=== PATIENT | male | born 2000 | race Caucasian/White ===

== ENCOUNTER 2021-01-06 16:41 | Emergency (ER) | payer OTHER ==
[~2021-01-06] VITALS: Ht 172.7 cm; Wt 98.0 kg
[2021-01-06 17:04] VITALS: BP 119/83
[2021-01-06] MEDS ORDERED: HYDROCODONE/APAP 5/325MG TABLET ONE (17:26)
[2021-01-06] MEDS ORDERED: BACI/NEOM/POLY B OINT PKT 1 UDPKT PACKET ONE (17:26)
[2021-01-06] MEDS ORDERED: TDAP [DIPH/PERTUSSIS/TET] 0.5 ML VIAL IM ONE ×2 (17:27→17:30)
[2021-01-06] MEDS ORDERED: HYDROCODONE/APAP 5/325MG TABLET PO ONE (17:30)
[2021-01-06] MEDS ORDERED: BACITRACIN ZINC OINT PACKET 1 EA PACKET TP ONE (17:30)
[2021-01-06] MEDS ORDERED: HYDR-4209 PO (18:30)
[2021-01-06] MEDS ORDERED: NAPR500T6 PO (18:30)
--- NOTE | 2021-01-06 19:24 | NUR ---
splint/sling applied to left hand condition improved d/c home with instructions after care reviewed understood, cd copy given to patient for ortho follow up.
== END 2021-01-06 20:00 | disposition home or self-care (01) ==
LOC: ER 16:41
DX: S02.2XXA Fracture of nasal bones, initial encounter for closed fracture (principal); S62.142A Displaced fracture of body of hamate [unciform] bone, left wrist, initial encounter for closed fracture; S62.341A Nondisplaced fracture of base of second metacarpal bone, left hand, initial encounter for closed fracture; S00.531A Contusion of lip, initial encounter; S09.8XXA Other specified injuries of head, initial encounter; W17.89XA Other fall from one level to another, initial encounter; Y93.89 Activity, other specified; Y92.89 Other specified places as the place of occurrence of the external cause; Y99.8 Other external cause status
CPT/HCPCS: 70450-TC; 70486-TC; 73110; 73130-TC; 90715